=== PATIENT | male | born 2000 | race Caucasian/White ===

== ENCOUNTER 2018-12-15 00:08 | Emergency (ER) | payer BC ==
--- NOTE | 2018-12-15 02:20 | ED ---
Laceration/Wound HPI - HPI Summary HPI Summary: Patient with history of alcohol ingestion tonight complains of fall with subsequent chipped tooth and laceration to right upper lip. Tetanus status up- to-date. Denies any other pain, injury or symptoms. Friends are here, witnessed fall and state no LOC, AMS, vomiting. Friends say patient is a little more energetic than usual at this time, but otherwise at baseline behavior. - History of Current Complaint Stated Complaint: FALL PER PT Time Seen by Provider: 12/15/18 00:38 Hx Obtained From: Patient, Family/[employer]ision Dyer Mechanism of Injury: Sharp/Blunt Trauma Onset/Duration: Lasting Minutes Aggravating: Nothing Alleviating: Nothing Onset Severity: Moderate Current Severity: Moderate Pain Intensity: 5 Pain Scale Used: 0-10 Numeric Associated Signs & Symptoms: Pain - Allergy/Home Medications Allergies/Adverse Reactions: Allergies Allergy/AdvReac Type Severity Reaction Status Date / Time No Known Allergies Allergy Verified 12/15/18 00:20 PMH/Surg Hx/FS Hx/Imm Hx Endocrine/Hematology History: Denies: Hx Anticoagulant Therapy Cardiovascular History: Denies: Hx Pacemaker/ICD History: Denies: Hx Dialysis Sensory History: Denies: Hx Eye Prosthesis Opthamlomology History: Denies: Hx Legally Blind EENT History: Denies: Hx Deafness Neurological History: Denies: Hx Dementia Infectious Disease History: No Infectious Disease History: Denies: Traveled Outside the [place] in Last 30 Days - Family History Known Family History: Positive: Non-Contributory - Social History Alcohol Use: Occasionally Hx Substance Use: No Hx Tobacco Use: No Review of Systems Constitutional: Negative Eyes: Negative Positive: Other Cardiovascular: Negative Respiratory: Negative Gastrointestinal: Negative Genitourinary: Negative Musculoskeletal: Negative Skin: Other Neurological: Negative Psychological: Normal All Other Systems Reviewed And Are Negative: Yes Physical Exam - Summary Physical Exam Summary: Laceration to right upper lip. Tooth #8 broken in half horizontally. Remaining portion intact and family stated. No other trauma noted to mouth, face, head. Full range of motion of jaw and neck. No pain with palpation of neck, chest wall, back, abdomen. Patient moving all 4 extremities freely. Patient alert and oriented, coherent and appropriate. Neuro exam normal. Triage Information Reviewed: Yes Vital Signs On Initial Exam: Initial Vitals Temp Pulse Resp BP Pulse Ox 98.8 F 78 18 123/77 96 12/15/18 00:15 12/15/18 00:15 12/15/18 00:15 12/15/18 00:15 12/15/18 00:15 Vital Signs Reviewed: Yes Appearance: Positive: Well-Appearing Skin: Positive: Warm Head/Face: Positive: Normal Head/Face Inspection Eyes: Positive: Normal ENT: Positive: Normal ENT inspection Dental: Positive: Dental Fracture @. Negative: Bleeding Neck: Positive: Supple Respiratory/Lung Sounds: Positive: Clear to Auscultation Cardiovascular: Positive: Normal Abdomen Description: Positive: Nontender Musculoskeletal: Positive: Normal Neurological: Positive: Normal Psychiatric: Positive: Normal AVPU Assessment: Alert - Teo Coma Scale Best Eye Response: 4 - Spontaneous Best Motor Response: 6 - Obeys Commands Best Verbal Response: 5 - Oriented Coma Scale Total: 15 Procedures - Sedation Patient Received Moderate/Deep Sedation with Procedure: No - Laceration/Wound Repair 1 Location: mouth Description: Irregular Anesthesia: Local, 1.0% Length, Depth and Shape: 3cm x .5cm Betadine Prep?: No Irrigated w/ Saline (ccs): 200 Laceration/Wound Explored: clean Debridement: minimal Suture Type: Vicryl Number of Sutures: 10 - 6.0 Layer Closure?: No Sterile Dressing Applied?: No Diagnostics - Vital Signs Vital Signs Temp Pulse Resp BP Pulse Ox 12/15/18 00:15 98.8 F 78 18 123/77 96 - Laboratory Lab Statement: Any lab studies that have been ordered have been reviewed, and results considered in the medical decision making process. Laceration Repair Course/Dx - Course Course Of Treatment: Patient with history of alcohol ingestion tonight complains of fall with subsequent chipped tooth and laceration to right upper lip. Tetanus status up-to-date. Denies any other pain, injury or symptoms. Friends are here, witnessed fall and stayed no LOC, AMS, vomiting. Friends say patient is a little more energetic than usual at this time, but otherwise at baseline behavior. Vital signs within normal limits. Lip laceration cleaned and sutured. Follow-up with dentist. - Clinical Impression Provider Diagnoses: Chipped tooth, Lip laceration Discharge ED - Sign-Out/Discharge Documenting (check all that apply): Patient Departure - Discharge Plan Condition: Stable Disposition: HOME Patient Education Materials: Laceration (ED), Acute Dental Trauma (ED), Care For Your Absorbable Stitches (ED) Referrals: No Primary Care Phys,NOPCP [Primary Care Provider] - Additional Instructions: Sutures are absorbable and will dissolve on their own. Wash lips with warm running water and soap. Do not submerge your head under water for 4 days as in swimming or bathing. Follow up with your dentist for further evaluation of chipped tooth. - Billing Disposition and Condition Condition: STABLE Disposition: Home
[2018-12-15 02:33] VITALS: BP 128/65
== END 2018-12-15 02:25 | disposition home or self-care (01) ==
LOC: ED 00:08
DX: S01.511A Laceration without foreign body of lip, initial encounter (principal); S02.5XXA Fracture of tooth (traumatic), initial encounter for closed fracture; W19.XXXA Unspecified fall, initial encounter; Y92.9 Unspecified place or not applicable
CPT/HCPCS: 12013; 99281